=== PATIENT | male | born 1950 ===

== ENCOUNTER → 2019-01-06 | Outpatient (CLI) | payer SELFPAY ==
[2019-01-06 20:31] LABS: COLLECTION METHOD CLEAN CATCH
[2019-01-06 20:36] LABS: PH 7 (5-8); SQUAMOUS EPITHELIAL None Seen /hpf; URINE APPEARANCE Clear; URINE BACTERIA None Seen /hpf; URINE BILIRUBIN Negative (NEGATIVE); URINE BLOOD 2+ (NEGATIVE); URINE COLOR Colorless; URINE GLUCOSE Negative (NEGATIVE); URINE KETONE Negative (NEGATIVE); URINE LEUKOCYTE ESTERASE Negative (NEGATIVE); URINE NITRATE Negative (NEGATIVE); URINE PROTEIN(semi-quant) Negative (NEGATIVE); URINE RBC 0-2 /hpf; URINE UROBILINOGEN Negative (NEGATIVE)
== END ==
LOC: ZCOL.LAB 16:10
PROVIDERS: Family Medicine
DX: R30.0 Dysuria (principal)